=== PATIENT | female | born 1945 | race Caucasian/White ===

== ENCOUNTER 2019-07-06 23:33 | Inpatient (IN) | payer OTHER ==
[~2019-07-06] VITALS: Ht 157.5 cm; Wt 122.5 kg
[~2019-07-06 23:33] MED LIST: ADULT LOW DOSE81 MG PO; AMBIEN 10 MG TA10 MG PO; BUSPAR PO; COLACE100 MG PO; ESTRACE2 MG PO; HYDROCODON-ACE1 EA10; HYDROCODON-ACE1 EAC5 PO; HYDROCODON-ACE1 EAC7 PO; HYDROCODON-ACE1 EAC8 PO; HYDROCODON-ACE1 EACH PO; LEXAPRO 10 MG T10 MG PO; LYRICA 75 MG CA75 MG PO; NABUMETONE 500500 M1 PO; NEXIUM40 MG PO; NORCO 10-325 T1 EACH PO; NORVASC 5 MG TAB5 MG PO; OXYCONTIN; PERCOCET 10-321 EACH; PREDNISONE 20 M20 M1 PO; PROMETRIUM PO; PROMETRIUM100 MG; PROTONIX40 M2 PO; QUINAPRIL 20 MG20 MG PO; RELAFEN500 MG PO; VITAMIN D1000 UNI1 PO; VYVANSE70 MG PO; WELLBUTRIN SR150 MG PO; WELLBUTRIN XL300 M1 PO; [UNRECOGNIZED DRUG - OTHER] PO
[2019-07-07 01:12] VITALS: BP 148/72
--- NOTE | 2019-07-07 05:51 | NUR ---
PT NEW ADMIT. TRANSFER FROM [facility]. ARRIVE AT AROUND 0030. AO X4. SCORES 0 ON [facility] STROKE ASSESSMENT. NO C/O HEADACHE. MILD NAUSEA REPORTED. NO VOMITING. DENIES CHEST PAIN. TO BRING LIST OF HOME MEDICATIONS. SINUS RHYTHM ON THE MONITOR. ADMISSION ASSESSMENT DOCUMENTED. WILL CONTINUE TO FOLLOW POC.
[2019-07-07 06:10] VITALS: BP 153/88
[2019-07-07 12:59] VITALS: BP 141/91
[2019-07-07 16:30] VITALS: BP 136/66
[2019-07-07 19:06] VITALS: BP 153/84
--- NOTE | 2019-07-07 19:11 | NUR ---
PATIENT CONCERNS: 1. ANTIDEPRESSANT MEDICATIONS, SHOULD SHE BE ON TWO? 2. FAMILY NOTES TREMORS ON LEFT HAND/ARM INTERMITTENTLY AT HOME AND WANTS TO KNOW IF THIS IS CONSISTENT WITH NEURO FINDINGS. 3. FAMILY WOULD LIKE ENTIRE MEDICATION LIST REVIEWED TO MAKE SURE SHE IS ON THE CORRECT MEDICATIONS AT HOME TO PREVENT FURTHER STROKE LIKE SYMPTOMS. PATIENT PROGRESSING TOWARDS PLAN OF CARE OF MAINTAING WITHIN NORMAL LIMITS NEURO STATUS, INCREASED ACTIVITY, AND LESS ANXIETY OF TREATMENT FINDINGS.
[2019-07-07] MEDS ORDERED: CELEXA10 M1 PO (20:20)
[2019-07-07] MEDS ORDERED: VENLAFAXINE HCL75 MG PO (20:21)
[2019-07-07] MEDS ORDERED: LIPITOR 20 MG T20 M1 PO (20:21)
[2019-07-07] MEDS ORDERED: OMEPRAZOLE 20 M20 M1 PO (20:22)
[2019-07-07] MEDS ORDERED: MELOXICAM15 MG PO (20:22)
[2019-07-07] MEDS ORDERED: IFEREX 150150 MG PO (20:23)
[2019-07-07] MEDS ORDERED: OYSCO 500+D TA1 EACH PO (20:23)
[2019-07-07] MEDS ORDERED: HYDROCHLOROTHIA25 M2 PO (20:24)
[2019-07-07] MEDS ORDERED: KLOR-CON M2020 MEQ PO (20:24)
[2019-07-07] MEDS ORDERED: QUINAPRIL HCL40 MG PO (20:25)
[2019-07-07] MEDS ORDERED: HYDROCODON-ACE1 EAC8 PO (20:26)
[2019-07-07] MEDS ORDERED: VIT D3 PO (20:27)
[2019-07-07] MEDS ORDERED: MULTIVITAMIN W1 EAC2 PO (20:27)
[2019-07-08 03:05] LABS: GLYCOHEMOGLOBIN (HGB A1C) 6.4 % (4.8-5.6)
--- NOTE | 2019-07-08 03:48 | NUR ---
ASSUMED CARE AT 1900. PT ALERT AND ORIENTED. PT CONCERNED ABOUT HEADACHES AND HER ANTIDEPRESSANT MEDICATIONS. VITALS STABLE . ZERO ON [facility] STROKE ASSESSMENTS. LEFT ARM MINIMALS TREMORS , REPORTS TO BE " NOTHING NEW.". WILL CONTINUE TO MONITOR.
[2019-07-08 04:07] VITALS: BP 176/86
[2019-07-08 04:36] LABS: HEMATOCRIT 43.1 % (37.0-47.0); HEMOGLOBIN 14.5 gm/dL (12.0-15.0); MCH 30.4 pg (26.0-34.0); MCHC 33.7 g/dL (28.0-37.0); MCV 90.1 fL (80.0-100.0); RBC 4.79 mil/uL (4.20-5.00); RDW 13.4 % (10.5-14.5); WBC 6.4 thou/uL (4.0-11.0)
[2019-07-08 04:54] LABS: ALBUMIN 3.4 g/dL (3.4-5.0); ANION GAP 8 mmol/L (7-16); BUN 23 mg/dL (7-18); CALCIUM 9.1 mg/dL (8.5-10.1); CHLORIDE 102 mmol/L (98-107); CHOLESTEROL 149 mg/dL (<200); CO2 30 mmol/L (21-32); CREATININE 0.8 mg/dL (0.6-1.0); GLUCOSE 158 mg/dL (74-106); HDL CHOLESTEROL 63 mg/dL (>40); LDL CHOLESTEROL 62 mg/dL (<100); POTASSIUM 3.9 mmol/L (3.5-5.1); SERUM ASSESSMENT Clear; SGOT 14 U/L (15-37); SGPT 20 U/L (30-65); SODIUM 140 mmol/L (136-145); TC:HDL 2.4 Ratio (Not establshd); TOTAL BILIRUBIN 0.6 mg/dL (<0.1-1.0); TOTAL PROTEIN 6.5 g/dL (6.4-8.2); TRIGLYCERIDE 122 mg/dL (<150); VLDL 24 mg/dL (<40)
[2019-07-08 08:20] VITALS: BP 149/100
[2019-07-08 12:05] VITALS: BP 150/85
--- NOTE | 2019-07-08 12:15 | NUR ---
ASSUMED CARE AT 0700, SHIFT ASSESSMENT DONE, MEDS GIVEN, VSS. DENIES PAIN, NAUSEA, VOMITING. ROOM AIR, UP WITH STANDBY ASSIST. MRI WAS NEGATIVE, AWAITING FOR NEUROLOGIST TO SEE THE PT FOR POSSIBLE DC TODAY. WILL CONTINUE TO ASSESS AND ASSIST WITH ADLs NEEDED.
[2019-07-08] MEDS ORDERED: ADULT LOW DOSE81 MG PO (15:38)
[2019-07-08] MEDS ORDERED: VERAPAMIL HCL180 M4 PO (15:40)
[2019-07-08 16:13] VITALS: BP 150/85
== END 2019-07-08 17:33 | disposition home or self-care (01) | DRG 69 ==
LOC: 2N 23:33
PROVIDERS: Nurse Practitioner Family; ADMIT Hospitalist
DX: G45.9 Transient cerebral ischemic attack, unspecified (principal); I10 Essential (primary) hypertension; E78.5 Hyperlipidemia, unspecified; K21.9 Gastro-esophageal reflux disease without esophagitis; F90.9 Attention-deficit hyperactivity disorder, unspecified type; F41.9 Anxiety disorder, unspecified; F32.9 Major depressive disorder, single episode, unspecified; M79.7 Fibromyalgia; G89.29 Other chronic pain; M48.00 Spinal stenosis, site unspecified; G43.909 Migraine, unspecified, not intractable, without status migrainosus; M16.10 Unilateral primary osteoarthritis, unspecified hip; D50.9 Iron deficiency anemia, unspecified; Z88.6 Allergy status to analgesic agent; Z79.899 Other long term (current) drug therapy; Z87.01 Personal history of pneumonia (recurrent); Z90.49 Acquired absence of other specified parts of digestive tract; Z87.442 Personal history of urinary calculi; Z82.49 Family history of ischemic heart disease and other diseases of the circulatory system; Z83.6 Family history of other diseases of the respiratory system; Z80.8 Family history of malignant neoplasm of other organs or systems
CPT/HCPCS: 10081